=== PATIENT | female | born 1980 | race American Indian/Alaskan Native ===

== ENCOUNTER 2016-11-08 05:14 | Observation (INO) | payer OTHER ==
[2016-11-08] MEDS ORDERED: Sodium Chloride 0.9% 1,000 ML IV STA ×2 (05:53→06:39)
[2016-11-08] MEDS ORDERED: Lactated Ringer's 1,000 ML IV SCH (06:00)
--- NOTE | 2016-11-08 06:15 | ED PDOC ---
HPI: Abdomen Time Seen by Provider: 11/08/16 05:31 Chief Complaint (Nursing): GI Problem Chief Complaint (Provider): GI problem History Per: Patient History/Exam Limitations: no limitations Onset/Duration Of Symptoms: Days (2x weeks) Severity: Moderate Location Of Pain/Discomfort: Epigastric Associated Symptoms: Vomiting Additional Complaint(s): 36 year old female A5 13 weeks presents to the ED with complaints of persistent vomiting that started 3x days ago. She came to the ED 1x week ago for the same complaints,and was discharged home with an Rx for zorfran. She reports that the zofran worked for a few days, but she started vomiting again 3x days ago.She has several episodes of vomiting per day. She also reports having mild epigastric pain from vomiting, but she denies having having any other symptoms including back pain, fever, abnormal vaginal bleeding, and lower abdominal pain. LEARNING PROGRAM MANAGER: Justin Hassan MD PMD:Patient does not recall. : 8 Para: 2 Miscarriage: 5 Past Medical History Reviewed: Historical Data, Nursing Documentation, Vital Signs Vital Signs: Last Vital Signs Temp 98.8 F 11/08/16 07:25 Pulse 80 11/08/16 10:22 Resp 20 11/08/16 10:22 BP 143/81 11/08/16 10:22 Pulse Ox 100 11/08/16 10:22 - Medical History PMH: No Chronic Diseases - Surgical History Surgical History: No Surg Hx Other surgeries: surgery for ectopic - Family History Family History: States: Unknown Family Hx - Home Medications Home Medications: Ambulatory Orders Medication Instructions Recorded Famotidine [Pepcid] 20 mg PO BID #28 tab 11/01/16 Ondansetron [Zofran] 4 mg PO Q8H #15 tab 11/01/16 Ondansetron [Zofran Odt] 4 mg PO Q8H PRN #15 odt 11/08/16 - Allergies Allergies/Adverse Reactions: Allergies Allergy/AdvReac Type Severity Reaction Status Date / Time No Known Allergies Allergy Verified 11/08/16 06:13 Review of Systems ROS Statement: Except As Marked, All Systems Reviewed And Found Negative Constitutional: Negative for: Fever Gastrointestinal: Positive for: Nausea, Vomiting, Abdominal Pain. Negative for : Diarrhea Musculoskeletal: Negative for: Back Pain Physical Exam - Reviewed Nursing Documentation Reviewed: Yes Vital Signs Reviewed: Yes - Physical Exam Appears: Positive for: Well, Non-toxic, No Acute Distress Head Exam: Positive for: ATRAUMATIC, NORMOCEPHALIC Cardiovascular/Chest: Positive for: Regular Rate, Rhythm Respiratory: Positive for: Normal Breath Sounds Gastrointestinal/Abdominal: Positive for: Normal Exam, Soft. Negative for: Tenderness Extremity: Positive for: Normal ROM Neurologic/Psych: Positive for: Alert, Oriented (3x) - Laboratory Results Result Diagrams: 11/08/16 06:12 11/08/16 06:12 - ECG O2 Sat by Pulse Oximetry: 100 (RA) Pulse Ox Interpretation: Normal Medical Decision Making Medical Decision Makin:31 initial impression: 36 year old female 13 weeks with persistent nausea and vomiting. Differential diagnoses include but are not limited to hyperemesis gravidarum. Initial plan: * CMP * test * dipstick * CBC * lactated ringers 1,000 ml IV 500mls/hr * reglan 10mg sodium chloride .9% 50ml IVPB * zofran inj 4mg IVP * reevaluation Scribe Attestation: Documented by Ange Krueger, acting as a scribe for Jaden Hines MD. Provider Scribe Attestation: All medical record entries made by the Scribe were at my direction and personally dictated by me. I have reviewed the chart and agree that the record accurately reflects my personal performance of the history, physical exam, medical decision making, and the department course for this patient. I have also personally directed, reviewed, and agree with the discharge instructions and disposition. Disposition - Clinical Impression Clinical Impression: Hyperemesis gravidarum - Patient ED Disposition Is Patient to be Admitted: Transfer of Care - Disposition Disposition: Transfer of Care Disposition Time: 07:00 Condition: FAIR Patient Signed Over To: Yina Mendoza
[2016-11-08 06:16] LABS: BASO # 0.1 K/uL (0.0-0.2); BASO % 0.8 % (0.0-2.0); HEMATOCRIT 36.6 % (34.0-47.0); LYMPH # 1.2 K/uL (1.0-4.3); LYMPH % 12.1 % (20.0-40.0); MEAN CORPUSCULAR HEMOGLOBIN 34.9 pg (27.0-31.0); MEAN CORPUSCULAR HGB CONC 34.6 g/dL (33.0-37.0); MEAN PLATELET VOLUME 7.1 fl (7.2-11.7); MONO # 0.7 K/uL (0.0-0.8); MONO % 6.8 % (0.0-10.0); NEUT # 7.8 K/uL (1.8-7.0); NEUT % 80.3 % (50.0-75.0); WHITE BLOOD COUNT 9.7 K/uL (4.8-10.8)
[2016-11-08 06:36] LABS: ALKALINE PHOSPHATASE 62 U/L (38-126); ALT/SGPT 37 U/L (9-52); AST/SGOT 30 U/L (14-36); BLOOD UREA NITROGEN 14 mg/dl (7-17); CALCIUM 10.1 mg/dL (8.4-10.2); CARBON DIOXIDE 23 mmol/L (22-30); CHLORIDE 100 mmol/L (98-107); GFR AFRICAN-AMERICAN > 60; GLUCOSE,RANDOM 122 mg/dL (65-105); POTASSIUM 3.5 MMOL/L (3.6-5.0); SODIUM 138 mmol/l (132-148); TOTAL PROTEIN 8.6 G/DL (6.3-8.2)
[2016-11-08] MEDS ORDERED: Potassium Chloride 20 mEq ER Tab PO ONE ×2 (06:40→07:12)
--- NOTE | 2016-11-08 07:18 | ED PDOC ---
- Laboratory Results Result Diagrams: 11/08/16 06:12 11/08/16 06:12 - ECG O2 Sat by Pulse Oximetry: 100 (RA) - Progress ED Course And Treament: Pt tolerated PO, feels better. Re-evaluation Time: 10:13 Condition: Improved Disposition - Clinical Impression Clinical Impression: Hyperemesis gravidarum - POA Present On Arrival: None - Disposition Disposition: Routine/Home Disposition Time: 10:15 Condition: IMPROVED ED OBSERVATION Time of observation admission: 07:00 - Observation admission statement Patient is being placed in observation because:: Hyperemesis Addendum Addendum: 11/08/16 07:[address] Pt signed out [address] Hines pending reevaluation.
[2016-11-08 07:42] VITALS: TEMP 98.8
[2016-11-08 09:05] VITALS: O2SAT 100
[2016-11-08 10:23] VITALS: BP 143/81; PULSE 80; RESP 20
== END 2016-11-08 10:52 | disposition home or self-care (01) ==
LOC: H.ER 05:14 → H.EROBSV 07:00
PROVIDERS: ADMIT Emergency Medicine; ATTEND Emergency Medicine
DX: O21.0 Mild hyperemesis gravidarum (principal); Z3A.13 13 weeks gestation of pregnancy